=== PATIENT | male | born 1955 | race Two or more races ===

== ENCOUNTER 2024-03-19 13:38 | Inpatient (IN) | payer OTHER ==
[~2024-03-19] VITALS: Ht 167.6 cm; Wt 83.9 kg
[2024-03-19] MEDS ORDERED: ATACAND4 MG (14:29)
[2024-03-19] MEDS ORDERED: TOPROL XL25 M1 (14:29)
[2024-03-19] MEDS ORDERED: NIFEDIPINE20 MG (14:30)
[2024-03-19 15:43] LABS: HEMATOCRIT 49.2 % (39.0-48.0); HEMOGLOBIN 17.7 g/dL (13-16.00); MEAN CELL VOLUME 90.7 fL (80.0-100.00); MEAN CORPUSCULAR HEMOGLOBIN 32.6 pg (27.00-32.0); RED BLOOD COUNT 5.42 M/uL (4.00-6.00); RED CELL DISTRIBUTION WIDTH 13.4 % (11.5-14.5)
[2024-03-19 15:47] LABS: PLATELET COUNT 103 K/uL (150-450)
[2024-03-19 15:57] LABS: CALCIUM 9.2 mg/dL (8.5-10.1); CREATININE SERUM 2.22 mg/dL (0.70-1.30); GFR 29.69; POTASSIUM 4.06 mEq/L (3.5-5.1)
[2024-03-19] MEDS ORDERED: 0.9 % SODIUM CHLORIDE 1,000 ML IV STA (16:05)
[2024-03-19] MEDS ORDERED: CIPROFLOXACIN IN 5 % DEXTROSE 200 ML IV SCH (18:51)
[2024-03-19] MEDS ORDERED: 0.9 % SODIUM CHLORIDE 1,000 ML IV SCH (19:00)
[2024-03-19] MEDS ORDERED: ONDANSETRON HCL 4 MG in 0.9 % SODIUM CHLORIDE 50 ML IV PRN (19:00)
[2024-03-19 19:22] LABS: ABG PH 7.391 (7.35-7.45); ABG PO2 63.1 mmHg (80-100); ABG pCO2 33.1 mmHg (35-45); BASE EXCESS -4.3 mmol/l; BICARBONATE 19.6 mmol/l (23-25); SaO2 91.3 %; Tco2 20.6 mmol/l
[2024-03-19 19:34] LABS: allen test SATISFACTORY; o2 21 %; puncture site RADIAL RIGHT
[2024-03-19 19:48] LABS: AMYLASE 60 U/L (25-115); LIPASE 82 U/L (13-75)
[2024-03-19 19:54] LABS: ALBUMIN 3.2 gm/dL (3.4-5.0); BILIRUBIN TOTAL 0.62 mg/dL (0.3-1.2); BILIRUBIN,CONJUGATED 0.22 mg/dL (0.0-0.2); BILIRUBIN,UNCONJUGATED 0.4 mg/dL (0.0-0.6); CALCIUM 8.7 mg/dL (8.5-10.1); CREATININE SERUM 1.74 mg/dL (0.70-1.30); GFR 39.33; GLOBULINA 3.9 G/DL (2.4-3.5); POTASSIUM 3.44 mEq/L (3.5-5.1); TOTAL PROTEIN 7.1 gm/dL (6.4-8.2)
[2024-03-19 20:01] LABS: INR 1.04; PARTIAL THROMBOPLASTIN TIME 32.3 SECONDS (22.0-34.0); PROTHROMBIN TIME 10.9 SECONDS (9.0-11.5)
[2024-03-19] MEDS ORDERED: METRONIDAZOLE/SODIUM CHLORIDE 100 ML IV SCH (21:00)
[2024-03-20] MEDS ORDERED: POTASSIUM CHLORIDE 20MEQ/100ML H2O PB IV NR (10:45)
[2024-03-20] MEDS ORDERED: LACTOBACILLUS ACIDOPHILUS 1 CAP CAP PO SCH (13:00)
[2024-03-20 23:52] LABS: HEMATOCRIT 45.1 % (39.0-48.0); MEAN CORPUSCULAR HEMOGLOBIN 32.4 pg (27.00-32.0); MEAN CORPUSCULAR HGB CONC 35.6 g/dl (32.0-36.0); RED BLOOD COUNT 4.96 M/uL (4.00-6.00)
[2024-03-21 00:38] LABS: PLATELET COUNT 90 K/uL (150-450)
[2024-03-21 08:35] LABS: BILIRUBIN TOTAL 0.82 mg/dL (0.3-1.2); CALCIUM 8.4 mg/dL (8.5-10.1); CREATININE SERUM 1.05 mg/dL (0.70-1.30); GFR 70.45; GLOBULINA 3.2 G/DL (2.4-3.5); POTASSIUM 3.53 mEq/L (3.5-5.1); TOTAL PROTEIN 6.2 gm/dL (6.4-8.2)
== END 2024-03-21 14:09 | disposition home or self-care (01) | DRG 684 ==
LOC: ER 13:39 → MEDI 19:20 → SEC-K 19:20 → MEDI 19:43
PROVIDERS: General Practice; Internal Medicine; ADMIT Internal Medicine; ATTEND Internal Medicine
PROC: BW21ZZZ Computerized Tomography (CT Scan) of Abdomen and Pelvis (ICD-10-PCS; principal; 2024-03-19)
DX: N17.9 Acute kidney failure, unspecified (principal); E86.0 Dehydration; K57.30 Diverticulosis of large intestine without perforation or abscess without bleeding; I10 Essential (primary) hypertension; E78.5 Hyperlipidemia, unspecified; D69.6 Thrombocytopenia, unspecified